=== PATIENT | male | born 2005 | race African-American/Black ===

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

== ENCOUNTER 2024-09-25 12:46 | Emergency (ER) | payer BC, OTHER ==
[~2024-09-25] VITALS: Ht 180.3 cm; Wt 72.6 kg
[2024-09-25 12:49] VITALS: O2SAT 100
[2024-09-25 13:28] VITALS: BP 114/62; PULSE 98; RESP 18; TEMP 36.83628; O2SAT 100
== END 2024-09-25 13:39 | disposition home or self-care (01) ==
LOC: ER 12:46
DX: S21.91XD Laceration without foreign body of unspecified part of thorax, subsequent encounter (principal); Z48.02 Encounter for removal of sutures; X58.XXXD Exposure to other specified factors, subsequent encounter
CPT/HCPCS: 99281; Z7610 ×2